=== PATIENT | female | born 1990 | race Caucasian/White ===

== ENCOUNTER 2018-11-01 12:57 | Emergency (ER) | payer BC ==
[2018-11-01 13:22] VITALS: BP 103/65
--- NOTE | 2018-11-01 13:38 | UC ---
Throat Pain/Nasal Jacob HPI - HPI Summary HPI Summary: 28 yo female presents with sore throat for the last 2 days. She has not taken anything OTC for her symptoms. She is eating and drinking well, but has pain with swallowing. Denies fever, chills, sinus symptoms, cough, rash. - History of Current Complaint Chief Complaint: UCGeneralIllness Stated Complaint: [place], SORE THROAT Time Seen by Provider: 11/01/18 13:36 Hx Obtained From: Patient Hx Last Menstrual Period: unknown Onset/Duration: Sudden Onset Severity: Moderate Pain Intensity: 5 Pain Scale Used: 0-10 Numeric - Allergies/Home Medications Allergies/Adverse Reactions: Allergies Allergy/AdvReac Type Severity Reaction Status Date / Time Penicillins Allergy Intermediate rash Verified 11/01/18 13:23 vomitting PMH/Surg Hx/FS Hx/Imm Hx - Additional Past Medical History Additional PMH: None - Surgical History Surgical History: None - Family History Known Family History: Positive: None - Social History Occupation: Employed Full-time Lives: With Family Alcohol Use: Occasionally Substance Use Type: None Smoking Status (MU): Never Smoked Tobacco Review of Systems All Other Systems Reviewed And Are Negative: Yes Constitutional: Positive: Negative Skin: Positive: Negative Eyes: Positive: Negative ENT: Positive: Sore Throat Respiratory: Positive: Negative Cardiovascular: Positive: Negative Gastrointestinal: Positive: Negative Neurological: Positive: Negative Psychological: Positive: Negative Physical Exam - Summary Physical Exam Summary: GENERAL: NAD. WDWN. No pain distress. SKIN: No rashes, sores, lesions, or open wounds. HEENT: Head: AT/NC Eyes: Conjunctiva clear without inflammation or discharge. Ears: Hearing grossly normal. TMs intact, no bulging, erythema, or edema. Nose: Nasal mucosa pink and moist. NTTP maxillary and frontal sinus. Throat: Posterior oropharynx mild erythema and 2+ tonsillar enlargement. Thick white/yellow exudate adhered to left tonsil. Uvula midline. No hoarse voice or muffled voice. NECK: Supple. Mild TTP tonsillar LAD L>R CHEST: CTAB. No r/r/w. No accessory muscle use. Breathing comfortably and in no distress. CV: RRR. Without m/r/g. Pulses intact. Cap refill <2seconds NEURO: Alert. PSYCH: Age appropriate behavior. Triage Information Reviewed: Yes Vital Signs: Initial Vital Signs Temp 98.8 F 11/01/18 13:19 Pulse 71 11/01/18 13:19 Resp 18 11/01/18 13:19 BP 103/65 11/01/18 13:19 Pulse Ox 98 11/01/18 13:19 Laboratory Tests 11/01/18 13:56 Group A Strep Rapid Negative Vital Signs Reviewed: Yes Throat Pain/Nasal Course/Dx - Course Course Of Treatment: POC strep negative. Suspect viral vs bacterial tonsillitis. Will send for throat culture and provide anaerobic coverage with clindamycin given her PCN allergy. - Differential Dx/Diagnosis Provider Diagnosis: Tonsillitis Discharge - Sign-Out/Discharge Documenting (check all that apply): Patient Departure All imaging exams completed and their final reports reviewed: No Studies - Discharge Plan Condition: Stable Disposition: HOME Prescriptions: Clindamycin HCl 300 mg PO TID #21 capsule Patient Education Materials: Tonsillitis (ED) Referrals: Lin Du MD [Primary Care Provider] - Additional Instructions: If you develop a fever, shortness of breath, chest pain, new or worsening symptoms - please call your PCP or go to the ED. - Billing Disposition and Condition Condition: STABLE Disposition: Home - Attestation Statements Provider Attestation: Per institutional requirements, I have reviewed the chart, however, I was not consulted specifically or made aware of this patient by the midlevel provider. I did not personally evaluate, interact with , or disposition this patient.
--- NOTE | 2018-11-04 08:26 | UC ---
- Progress Note Progress Note: RN to call pt. + strep gp B and + normal [place]. I spoke with Micro at 8:12am. [facility] will run sensitivities, to check for sens to clindamycin. She is taking clindamycin (d/t PCN allergy). Continue clindamycin for now, unless otherwise advised by us or PCP. Seek medical attention for worse or new problems in the meantime. Course/Dx - Diagnoses Provider Diagnoses: Tonsillitis Discharge - Sign-Out/Discharge Documenting (check all that apply): Post-Discharge Follow Up All imaging exams completed and their final reports reviewed: No Studies - Discharge Plan Condition: Stable Disposition: HOME Prescriptions: Clindamycin HCl 300 mg PO TID #21 capsule Patient Education Materials: Tonsillitis (ED) Referrals: Lin Du MD [Primary Care Provider] - Additional Instructions: If you develop a fever, shortness of breath, chest pain, new or worsening symptoms - please call your PCP or go to the ED. - Billing Disposition and Condition Condition: STABLE Disposition: Home
== END 2018-11-01 14:05 | disposition home or self-care (01) ==
LOC: UCEAST 12:57
DX: J03.90 Acute tonsillitis, unspecified (principal); Z88.0 Allergy status to penicillin
CPT/HCPCS: 87070; 87077; 87651; 99212; G0463